=== PATIENT | female | born 1980 | race Caucasian/White ===

== ENCOUNTER 2018-09-01 06:35 | Emergency (ER) | payer OTHER ==
[~2018-09-01] VITALS: Ht 162.5 cm; Wt 97.5 kg
[~2018-09-01 06:35] MED LIST: DARVOCET N 1001 TAB PO; FLAGYL500 MG PO
[2018-09-01 06:37] VITALS: BP 128/89
[2018-09-01] MEDS ORDERED: SEPTDS PO (06:59)
[2018-09-01] MEDS ORDERED: Motrin,Rufen800 MG PO (06:59)
== END 2018-09-01 07:05 | disposition home or self-care (01) ==
LOC: ED 06:35
DX: L02.416 Cutaneous abscess of left lower limb (principal); Z88.1 Allergy status to other antibiotic agents